=== PATIENT | female | born 1950 | race Two or more races ===

== ENCOUNTER 2020-10-09 12:01 | Emergency (ER) | payer OTHER ==
[~2020-10-09] VITALS: Ht 152.4 cm; Wt 83.9 kg
[2020-10-09 13:35] LABS: Urine Bacteria MANY /hpf (None Seen); Urine Blood Negative /uL (Negative); Urine Hyaline Cast FEW /lpf (0 - 2); Urine Mucus FEW (None Seen); Urine Specific Gravity 1.021 (1.001-1.035); Urine WBC 164 /hpf (0 - 5); Urine WBC Clumps PRESENT /hpf (None Seen)
[2020-10-09 14:14] VITALS: BP 136/82
[2020-10-09] MEDS ORDERED: cefTRIAXone SOD 1,000 MG VL IM ONE (14:15)
== END 2020-10-09 14:31 | disposition home or self-care (01) ==
LOC: ER 12:01
DX: N39.0 Urinary tract infection, site not specified (principal)
CPT/HCPCS: 81001; 96372; 99283; J0696